=== PATIENT | female | born 1995 | race Caucasian/White ===

== ENCOUNTER 2017-07-09 22:55 | Emergency (ER) | payer BC ==
[~2017-07-09] VITALS: Ht 165.1 cm; Wt 70.4 kg
[2017-07-10] MEDS ORDERED: LEVETIRACETAM 500MG PREMIX 100 ML IV ONE (00:30)
[2017-07-10 00:43] LABS: BASOPHILS % 0.3 % (0.0-2.0); EOSINOPHILS % 0.7 % (0.0-5.0); HEMATOCRIT. 35.4 % (36.0-48.0); HEMOGLOBIN. 12.3 g/dL (12.0-16.0); LYMPHOCYTES % 16.3 % (20.0-50.0); MEAN CORPUSCULAR HEMOGLOBIN 31.1 pg (28.0-32.0); MEAN CORPUSCULAR VOLUME 89.5 fL (81.0-99.0); MONOCYTES % 6.7 % (2.0-8.0); PLATELET 182 x1000/uL (130-400); RED BLOOD CELL COUNT 3.96 mill/uL (4.2-5.4); RED CELL DISTRIBUTION WIDTH 12.5 % (11.6-14.6)
[2017-07-10 00:50] LABS: CHLORIDE 103 mEq/L (98-107)
[2017-07-10 00:52] LABS: HCG SCREEN NEGATIVE
[2017-07-10 01:01] LABS: CARBON DIOXIDE 28 mEq/L (21-32)
[2017-07-10 02:56] VITALS: BP 109/62
== END 2017-07-10 03:05 | disposition home or self-care (01) ==
LOC: ER 23:17
DX: G40.909 Epilepsy, unspecified, not intractable, without status epilepticus (principal); R51 Headache; R11.0 Nausea; Z98.890 Other specified postprocedural states
CPT/HCPCS: 36415; 80053; 84703; 85025; 93005; 96365; 96366; 99285; J1953; Z7610